=== PATIENT | male | born 1950 | race Caucasian/White ===

== ENCOUNTER 2022-07-28 12:41 | Emergency (ER) | payer OTHER ==
--- NOTE | 2022-07-28 15:10 | RAD REPORT ---
EXAM DESCRIPTION: US - Extremity Venous Uni Ltd - 07/28/2022 2:58 pm CLINICAL HISTORY: Pain COMPARISON: None. TECHNIQUE: Real-time sonographic evaluation of the left lower extremity deep venous system was perfo rmed. FINDINGS: Color Doppler, grayscale, and spectral analysis was performed. The common femoral and femoral veins are compressible and demonstrate normal color Doppler and graysc angel luis. Occlusive thrombus is present in the popliteal vein and posterior tibial vein. IMPRESSION: Positive for deep venous thrombosis within the left popliteal and posterior tibial veins .
[2022-07-28 15:56] LABS: Absolute Lymphocytes (CBC) 0.7 K/uL (0.7-4.9); Hematocrit 36.8 % (39.6-49.0); RBC Red Blood Cell Count 4.18 M/uL (4.33-5.43)
[2022-07-28 16:01] LABS: Protime INR 1.2
[2022-07-28 16:25] LABS: Albumin 3.1 g/dL (3.4-5.0); Bilirubin Direct 0.1 mg/dL (0-0.2); Bilirubin Total 0.4 mg/dL (0.2-1.0); Magnesium 2.1 mg/dL (1.6-2.4); Potassium 4.1 mmol/L (3.5-5.1); Protein, Total 6.4 g/dL (6.4-8.2); Troponin High Sensitivity 17.1 pg/mL (<58.9)
--- NOTE | 2022-07-28 16:58 | RAD REPORT ---
EXAM DESCRIPTION: CT - Chest For Pe Angio - 07/28/2022 4:39 pm CLINICAL HISTORY: left leg DVT COMPARISON: No comparisons TECHNIQUE: Dynamically enhanced axial 3 mm thick images of the chest were obtained during administra tion of <100> mL Isovue 370 IV contrast. Coronal and oblique reconstruction images were generated and reviewed. Exam utilizes a protocol for optimal evaluation of pulmonary arterial tree. Maximum intensity projections 3D imaging was utilized All CT scans are performed using dose optimization technique as appropriate and may include automated exposure control or mA/KV adjustment according to patient size. FINDINGS: Chest Wall: No suspicious thyroid nodules or pathologic lymphadenopathy. Lungs: Indeterminate, irregular bilateral nodular lesions in the lungs bilaterally. The distribution is more typical of an infectious or inflammatory process. No dominant nodules seen. Pleura: No significant effusions or pneumothorax. Mediastinum/bonnie: No pathologic lymphadenopathy. Pulmonary arteries/Aorta: Positive for bilateral pulmonary emboli. There is a mild clot burden. This is present within the bilateral lower lobe are and segmental pulmonary arteries No aortic aneurysm. Heart: No significant pericardial effusion. Normal heart size. Coronary artery calcifications. Upper abdomen: No acute abnormality. Bones: No acute abnormality. IMPRESSION: Positive for pulmonary embolism with mild clot burden. Bilateral irregular nodular opaci ties present. A few are peripheral in orientation and could conceivably represent small pulmonary inf arcts versus nonspecific infection or inflammation. No dominant nodule identified. Discussed with Brooke Melchor by Dr. Thomson at 0131 on 07/28/22
[2022-07-28] MEDS ORDERED: ENOXAPARIN 100 MG/ML SYR SQ ONE (17:18)
--- NOTE | 2022-07-28 17:18 | ER ---
Nurse's Notes [facility] Name: Serg Malone Age: 72 yrs Sex: Male : 1950 Arrival Date: 07/28/2022 Time: 12:49 Bed 26 Private MD: Diagnosis: Pulmonary embolism without acute cor pulmonale-bilateral;Acute embolism and thrombosis of other specified deep vein of left lower extremity;Cough Presentation: 07/28 13:09 Chief complaint: Patient states: he feels like he has a blood clot in his left leg. ap3 patient has had blood clots in the past on his right leg and in his right arm, and he feels like his left leg is now doing the same. He reports he called his PCP, who referred him to come to the ED for further evaluation. Coronavirus screen: At this time, the client does not indicate any symptoms associated with coronavirus-19. Ebola Screen: No symptoms or risks identified at this time. Initial Sepsis Screen: Does the patient meet any 2 criteria? No. Patient's initial sepsis screen is negative. Does the patient have a suspected source of infection? No. Patient's initial sepsis screen is negative. Risk Assessment: Do you want to hurt yourself or someone else? Patient reports no desire to harm self or others. Onset of symptoms was July 25, 2022. 13:09 Method Of Arrival: Ambulatory ap3 13:09 Acuity: VIC 3 ap3 Triage Assessment: 13:14 General: Appears in no apparent distress. Behavior is calm, cooperative. Pain: ap3 Complains of pain in left leg Pain began gradually, 2-3 days ago. Neuro: Level of Consciousness is awake, alert, obeys commands, Oriented to person, place, time, situation, Speech is normal. Cardiovascular: Patient's skin is warm and dry. Respiratory: Airway is patent Respiratory effort is even, unlabored, Respiratory pattern is regular, symmetrical. Historical: - Allergies: 13:12 ACETAMINOPHEN; ap3 - PMHx: 13:12 cancer; blood clots; ap3 - Immunization history:: Client reports having NOT received the Covid vaccine. Flu vaccine is not up to date. - Social history:: Smoking status: Patient denies any tobacco usage or history of. Patient uses alcohol, but reports only rare drinking. Screenin:14 Abuse screen: Denies threats or abuse. Nutritional screening: No deficits noted. ap3 Tuberculosis screening: No symptoms or risk factors identified. 13:15 Humpty Dumpty Scale Fall Assessment Tool (age< 18yrs) Age 13 years and above (1 pt). ap3 13:51 [facility] ED Fall Risk Assessment (Adult) History of falling in the last 3 months, em6 including since admission No falls in past 3 months (0 pts) Confusion or Disorientation No (0 pts) Intoxicated or Sedated No (0 pts) Impaired Gait No (0 pts) Mobility Assist Device Used No (0 pt) Altered Elimination No (0 pt) Score/Fall Risk Level 0 - 2 = Low Risk Oriented to surroundings, Maintained a safe environment, Educated pt \T\ family on fall prevention, incl call for assistance when getting out of bed, Assessed \T\ reinforced patient's understanding of fall precautions, Hourly rounding (assess needs \T\ fall precautionary measures) done, Used ambulatory aids as needed (educated on \T\ assisted with). Fall Risk Total Mckay Fall Scale indicates No Risk (0-24 pts). Assessment: 13:50 General: Appears in no apparent distress. Behavior is cooperative. Pain: Complains of em6 pain in left leg Pain does not radiate. Pain currently is 5 out of 10 on a pain scale. Quality of pain is described as pressure, sharp. Neuro: Level of Consciousness is awake, alert, obeys commands, Oriented to person, place, time, situation. Cardiovascular: Patient's skin is warm and dry. Respiratory: Airway is patent Respiratory effort is even, unlabored, Respiratory pattern is regular, symmetrical. GI: Abdomen is non-distended, Bowel sounds present X 4 quads. Abd is soft and non tender X 4 quads. : No signs and/or symptoms were reported regarding the genitourinary system. EENT: No signs and/or symptoms were reported regarding the EENT system. Derm: No signs and/or symptoms reported regarding the dermatologic system. Musculoskeletal: Circulation, motion, and sensation intact. Range of motion: intact in all extremities, Swelling present in left leg. 14:50 Reassessment: Patient appears in no apparent distress at this time. No changes from em6 previously documented assessment. Patient and/or family updated on plan of care and expected duration. Pain level reassessed. Patient is alert, oriented x 3, equal unlabored respirations, skin warm/dry/pink. 15:49 Reassessment: Patient appears in no apparent distress at this time. No changes from em6 previously documented assessment. Patient and/or family updated on plan of care and expected duration. Pain level reassessed. Patient is alert, oriented x 3, equal unlabored respirations, skin warm/dry/pink. 16:50 Reassessment: Patient appears in no apparent distress at this time. No changes from em6 previously documented assessment. Patient and/or family updated on plan of care and expected duration. Pain level reassessed. Patient is alert, oriented x 3, equal unlabored respirations, skin warm/dry/pink. Vital Signs: 13:09 BP 132 / 80; Pulse 79; Resp 17; Temp 98.7(O); Pulse Ox 99% on R/A; Weight 97.52 kg; ap3 Height 6 ft. 2 in. (187.96 cm); 13:55 BP 124 / 75; Pulse 64; Resp 18; Pulse Ox 96% on R/A; em6 15:43 BP 125 / 76; Pulse 67; Resp 20; Pulse Ox 100% ; em6 17:00 BP 123 / 81; Pulse 62; Resp 18; Pulse Ox 100% ; em6 13:09 Body Mass Index 27.60 (97.52 kg, 187.96 cm) ap3 ED Course: 12:49 Patient arrived in ED. am2 12:57 Tavon Melchor PA is PHCP. cp 12:57 Alexys Keith MD is Attending Physician. cp 13:12 Triage completed. ap3 13:15 Arm band placed on left wrist. ap3 13:41 Elena Douglas, RN is Primary Nurse. em6 13:52 Bed in low position. Call light in reach. Side rails up X 1. Pulse ox on. NIBP on. Warm em6 blanket given. 14:59 US Extremity Venous Unilateral Ltd In Process Unspecified. EDMS 15:49 Basic Metabolic Panel Sent. em6 15:49 CBC with Diff Sent. em6 15:49 LFT's Sent. em6 15:49 Magnesium Sent. em6 15:49 NT PRO-BNP Sent. em6 15:49 PT-INR Sent. em6 15:49 Troponin HS Sent. em6 15:49 Inserted saline lock: 20 gauge in right antecubital area, using aseptic technique. em6 Blood collected. 16:41 CT Chest For PE Angio In Process Unspecified. EDMS 17:19 No provider procedures requiring assistance completed. em6 17:27 IV discontinued, intact, bleeding controlled, No redness/swelling at site. Pressure em6 dressing applied. Administered Medications: 17:14 Drug: Lovenox (enoxaparin) 1 mg/kg Route: Sub-Q; Site: right lower abdomen; em6 17:28 Follow up: Response: No adverse reaction em6 Medication: 17:19 VIS not applicable for this client. em6 Outcome: 17:17 Discharge ordered by MD. cp 17:27 Discharged to home ambulatory, with significant other. em6 17:27 Condition: stable 17:27 Discharge instructions given to patient, significant other, Instructed on discharge instructions, follow up and referral plans. medication usage, Demonstrated understanding of instructions, follow-up care, medications, Prescriptions given X 3. 17:28 Patient left the ED. em6 Signatures: Dispatcher [employer] EDMS Tavon Melchor PA PA cp Claudia Wallace am2 Claudia Brownlee, RN RN ap3 Elena Douglas, RN RN em6
--- NOTE | 2022-07-28 17:18 | EDPHYS ---
Physician Documentation [facility] Name: Serg Malone Age: 72 yrs Sex: Male : 1950 Arrival Date: 07/28/2022 Time: 12:49 Bed 26 Private MD: ED Physician Alexys Keith HPI: 07/28 14:10 This 72 yrs old Male presents to ER via Ambulatory with complaints of Leg Pain - cp possible blood clot. 14:10 The patient presents with pain, that is acute, swelling, tenderness. The complaints cp affect the left lower leg. 14:10 Onset: The symptoms/episode began/occurred 3 day(s) ago. Modifying factors: the cp symptoms are aggravated by movement, weight bearing. 14:10 Associated signs and symptoms: Pertinent positives: calf tenderness, swelling, cp productive cough, Pertinent negatives fever, chest pain, shortness of breath. Treatment prior to arrival includes: prescribed pain medications. 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 Is not currently taking blood thinner. Reports with previous DVT had to do Lovenox injections because Eliquis did not work. Historical: - Allergies: 13:12 ACETAMINOPHEN; ap3 - PMHx: 13:12 cancer; blood clots; ap3 - Immunization history:: Client reports having NOT received the Covid vaccine. Flu vaccine is not up to date. - Social history:: Smoking status: Patient denies any tobacco usage or history of. Patient uses alcohol, but reports only rare drinking. ROS: 14:15 Constitutional: Negative for chills, fever, poor PO intake. cp 14:15 Eyes: Negative for injury, pain, redness, and discharge. cp 14:15 ENT: Negative for drainage from ear(s), ear pain, sore throat, difficulty swallowing, difficulty handling secretions. 14:15 Cardiovascular: Negative for chest pain, edema, palpitations. 14:15 Respiratory: Negative for cough, shortness of breath, wheezing. 14:15 Abdomen/GI: Negative for abdominal pain, nausea, vomiting, and diarrhea. 14:15 Back: Negative for pain at rest, pain with movement. 14:15 MS/extremity: Positive for pain, swelling, tenderness, of the left lower leg, Negative for injury or acute deformity, decreased range of motion, paresthesias. 14:15 Neuro: Negative for altered mental status, dizziness, headache, syncope, weakness. 14:15 All other systems are negative. Exam: 14:20 Constitutional: The patient appears in no acute distress, alert, awake, cp non-diaphoretic, non-toxic, well developed, well nourished. 14:20 Head/Face: Normocephalic, atraumatic. cp 14:20 Eyes: Periorbital structures: appear normal, Conjunctiva: normal, no exudate, no injection, Sclera: no appreciated abnormality, Lids and lashes: appear normal, bilaterally. 14:20 ENT: External ear(s): are unremarkable, Nose: is normal, Mouth: Lips: moist, Oral mucosa: pink and intact, moist, Posterior pharynx: Airway: no evidence of obstruction, patent. 14:20 Chest/axilla: Inspection: normal. 14:20 Cardiovascular: Rate: normal, Rhythm: regular, Edema: is not appreciated, JVD: is not appreciated. 14:20 Respiratory: the patient does not display signs of respiratory distress, Respirations: normal, no use of accessory muscles, no retractions, labored breathing, is not present, Breath sounds: are clear throughout, no decreased breath sounds, no stridor, no wheezing. 14:20 Abdomen/GI: Inspection: abdomen appears normal, Palpation: abdomen is soft and non-tender, in all quadrants. 14:20 Back: CVA tenderness, is absent. 14:20 Musculoskeletal/extremity: Extremities: noted in the left lower leg: calf tenderness and pain on exam, lower leg swelling, positive Tori's sign, Pulses: noted to be 2+ in the left dorsalis pedis artery. 14:20 Skin: cellulitis, is not appreciated, no rash present. 14:20 Neuro: Orientation: to person, place \T\ time. Mentation: is normal, Motor: moves all fours, strength is normal, Sensation: no obvious gross deficits. Vital Signs: 13:09 BP 132 / 80; Pulse 79; Resp 17; Temp 98.7(O); Pulse Ox 99% on R/A; Weight 97.52 kg; ap3 Height 6 ft. 2 in. (187.96 cm); 13:55 BP 124 / 75; Pulse 64; Resp 18; Pulse Ox 96% on R/A; em6 15:43 BP 125 / 76; Pulse 67; Resp 20; Pulse Ox 100% ; em6 17:00 BP 123 / 81; Pulse 62; Resp 18; Pulse Ox 100% ; em6 13:09 Body Mass Index 27.60 (97.52 kg, 187.96 cm) ap3 MDM: 13:16 Patient medically screened. cp 16:00 Differential diagnosis: DVT, cellulitis, pulmonary embolism, CHF. cp 17:17 Data reviewed: vital signs, nurses notes, lab test result(s), EKG, radiologic studies, cp CT scan, ultrasound, I have discussed the patient's presentation/case with the attending Emergency Department Physician; and as a result, I will discharge patient. 17:17 Counseling: I had a detailed discussion with the patient and/or guardian regarding: the cp historical points, exam findings, and any diagnostic results supporting the discharge/admit diagnosis, lab results, radiology results, the need for outpatient follow up, a family practitioner, to return to the emergency department if symptoms worsen or persist or if there are any questions or concerns that arise at home. ED course: VSS. Discussed results of labs, EKG and radiology studies. Patient appears with no signs of respiratory distress. Patient has pain medications at home. Will discharge to home for continued monitoring with strict return precautions. 07/28 15:26 Order name: Basic Metabolic Panel; Complete Time: 16:35 07/28 16:35 Interpretation: Normal except: CL 109; GFR 72. 07/28 15:26 Order name: CBC with Diff; Complete Time: 16:35 07/28 16:36 Interpretation: Normal except: WBC 3.90; RBC 4.18; HGB 12.7; HCT 36.8; MPV 7.0. 07/28 15:26 Order name: LFT's; Complete Time: 16:35 07/28 15:26 Order name: Magnesium; Complete Time: 16:35 07/28 15:26 Order name: NT PRO-BNP; Complete Time: 16:35 07/28 15:26 Order name: PT-INR; Complete Time: 16:35 07/28 16:36 Interpretation: Reviewed. 07/28 13:58 Order name: US Extremity Venous Unilateral Ltd; Complete Time: 15:20 07/28 15:20 Interpretation: Report reviewed. 07/28 15:26 Order name: Troponin HS; Complete Time: 16:35 cp 07/28 15:26 Order name: EKG; Complete Time: 15:26 cp 07/28 15:26 Order name: Cardiac monitoring; Complete Time: 15:49 cp 07/28 15:26 Order name: EKG - Nurse/Tech; Complete Time: 15:49 cp 07/28 15:26 Order name: IV Saline Lock; Complete Time: 15:49 cp 07/28 15:26 Order name: CT Chest For PE Angio; Complete Time: 17:02 cp 07/28 15:26 Order name: Labs collected and sent; Complete Time: 15:49 cp 07/28 15:26 Order name: O2 Per Protocol; Complete Time: 15:49 cp 07/28 15:26 Order name: O2 Sat Monitoring; Complete Time: 15:49 cp Administered Medications: 17:14 Drug: Lovenox (enoxaparin) 1 mg/kg Route: Sub-Q; Site: right lower abdomen; em6 17:28 Follow up: Response: No adverse reaction em6 Disposition Summary: 07/28/22 17:17 Discharge Ordered Location: Home cp Problem: new cp Symptoms: have improved cp Condition: Stable cp Diagnosis - Pulmonary embolism without acute cor pulmonale - bilateral cp - Acute embolism and thrombosis of other specified deep vein of left lower extremity cp - Cough cp Followup: cp - With: Private Physician - When: 1 week - Reason: Recheck today's complaints Discharge Instructions: - Discharge Summary Sheet cp - Deep Vein Thrombosis cp - Pulmonary Embolism cp - Cool Mist Vaporizer cp - Cough, Adult cp Forms: - Medication Reconciliation Form cp - Thank You Letter cp - Antibiotic Education cp - Prescription Opioid Use cp Prescriptions: - lidocaine 5 % Topical ointment - apply 1 application by TOPICAL route 1-4 times daily As needed; 45 gram; cp Refills: 0, Product Selection Permitted - Lovenox 100 mg/mL Subcutaneous Syringe - inject 98 milligram by SUBCUTANEOUS route every 12 hours; 6000 milligram; cp Refills: 0, Product Selection Permitted - Zithromax Z-Erich 250 mg Oral Tablet - take 1 tablet by ORAL route as directed for 5 days Day 1 - take two (2) tablets cp one time. Day 2, 3, 4 , 5 take one (1) tablet once daily.; 6 tablet; Refills: 0, Product Selection Permitted Signatures: Dispatcher [employer] Tavon Peralta PA PA cp Prokisch, Amanda, RN RN ap3 Elena Douglas, RN RN em6
[2022-07-28 17:41] VITALS: TEMP 98.7
[2022-07-28 17:52] VITALS: O2SAT 100
[2022-07-28 17:53] VITALS: BP 123/81
--- NOTE | 2022-07-29 12:52 | EKG ---
Test Date: 2022-07-28 Test Time: 15:37:39 Voltmeter Operator: SHAWN MEASUREMENT RESULTS: Intervals: Rate: 63 WA: 174 QRSD: 128 QT: 422 QTc: 431 [place]: P: 51 WA: 174 QRS: -53 T: 25 INTERPRETIVE STATEMENTS: Normal sinus rhythm Left axis deviation Left ventricular hypertrophy with QRS widening Abnormal ECG No previous ECG available for comparison Electronically Signed On 07-29-22 12:51:40 HR RECRUITER by Reuben Saez
== END 2022-07-28 17:28 | disposition home or self-care (01) ==
LOC: ER 12:41
DX: I82.492 Acute embolism and thrombosis of other specified deep vein of left lower extremity (principal); I26.99 Other pulmonary embolism without acute cor pulmonale; R05.9 Cough, unspecified; Z88.6 Allergy status to analgesic agent
CPT/HCPCS: 93005; 85025; 80048; 36415; 83735; 85610; 80076; 84484; 83880; 71275; 93971; 96372; 99284; Q9967; J1650